=== PATIENT | male | born 1975 | race Caucasian/White ===

== ENCOUNTER 2022-02-15 20:18 | Observation (INO) ==
[2022-02-15] MEDS ORDERED: NITROGLYCERIN SL 0.4 MG/TAB TAB SL STA (20:37)
--- NOTE | 2022-02-15 20:40 | Emergency Department Note ---
History of Present Illness General Chief complaint: Chest Pain Stated complaint: TIGHTNESS IN CHEST, NUMBNESS IN JAW, HYPERTENSIVE Time Seen by Provider: 02/15/22 20:25 Source: patient and family ( who is at the bedside) Mode of arrival: ambulatory Limitations: no limitations History of Present Illness Maximum Pain Intensity: 3 This patient is a 47-year-old male who comes in after having chest pain since Wednesday. He describes an off-and-on chest tightness up to 3 out of 10 he says some numbness and tingling in his jaw. It has been intermittent but lasting up to hours he thinks he feels better at rest but is not necessarily better with exertion he gets worse if he plays a video game that stressful. Denies shortness of breath or pleurisy no trauma or injury. No diaphoresis. No nausea vomiting. No blood or melena stool. He did take 4 baby aspirin's at home. He had a stress test about a year ago as he had similar type symptoms. Moving his mother recently due to health problems and is so that is been somewhat stressful. No significant belching Home Medications Medication Instructions Recorded Confirmed Type lisinopril 10 1 tab PO HS 08/09/19 02/15/22 History mg-hydrochlorothiazide 12.5 mg tablet multivitamin 1 tab PO QAM 11/27/19 02/15/22 History omeprazole 40 mg capsule,delayed 40 mg PO QAM 02/15/22 02/15/22 History release Allergies Allergy/AdvReac Type Severity Reaction Status Date / Time hydrocodone AdvReac Intermediate Dizziness Verified 02/15/22 20:51 Past Med/Surg History Medical History Degenerative disc disease Hypertension Sciatic leg pain Sleep apnea CPAP HS Spondylisthesis ON CYMBALTA FOR THIS Strain of extensor tendon of wrist Trigger thumb of left hand Surgical History H/O vasectomy History of carpal tunnel surgery of right wrist History of deviated nasal septum WITH REPAIR History of surgery on arm CHILD CANT REM. WHICH ARM Slow to wake up after anesthesia HX- NOT AFTER MOST RECENT SURGERY Family History Mother Diabetes Social History Smoking Status: Never smoker Second Hand Exposure: No; Hx Alcohol Use: No Hx Substance Use: No Preferred Language: Israeli Communication Ability: Effective [employer] Feeder Required: No Beliefs That Will Affect Care: None Current Living Situation: Spouse Feels Safe at Home: Yes Assistive Devices: Contacts Review of Systems A total of 10 systems reviewed and were otherwise negative Physical Exam Vital Signs Vital Signs - 24 hr 02/15/22 20:19 02/15/22 20:44 02/15/22 20:50 Temperature 36.2 C L Temperature Source Temporal Artery Scan Pulse Rate 83 68 Pulse Rate [Right Finger] 77 69 Pulse Rhythm Regular Pulse Rhythm [Right Finger] Regular Regular Pulse Strength [Right Finger] Normal Normal Respiratory Rate 18 18 18 Respiratory Effort / Characteristics Non-Labored Spontaneous Non-Labored Spontaneous Non-Labored Spontaneous Respiratory Depth Normal Normal Normal Respiratory Pattern Regular Blood Pressure 187/103 H Blood Pressure [Right Arm] 166/92 H Blood Pressure Mean 131 Blood Pressure Mean [Right Arm] 116 Blood Pressure Position [Right Arm] Lying Pulse Oximetry 97 98 96 Oxygen Delivery Method Room Air Room Air Room Air Oxygen Flow Rate Sepsis Recent Fever Within 48 Hours No Sepsis New/Unexplained Change in Mental Status No Sepsis Action Taken by Nursing No Action Required 02/15/22 21:06 02/15/22 21:48 02/15/22 22:39 Temperature Temperature Source Pulse Rate Pulse Rate [Right Finger] 76 72 68 Pulse Rhythm Pulse Rhythm [Right Finger] Regular Regular Regular Pulse Strength [Right Finger] Normal Normal Normal Respiratory Rate 18 24 15 Respiratory Effort / Characteristics Non-Labored Spontaneous Non-Labored Spontaneous Non-Labored Spontaneous Respiratory Depth Normal Normal Normal Respiratory Pattern Blood Pressure Blood Pressure [Right Arm] 145/95 H 144/86 H 119/84 Blood Pressure Mean Blood Pressure Mean [Right Arm] 111 105 95 Blood Pressure Position [Right Arm] Lying Lying Lying Pulse Oximetry 96 97 97 Oxygen Delivery Method Room Air Room Air Room Air Oxygen Flow Rate Sepsis Recent Fever Within 48 Hours Sepsis New/Unexplained Change in Mental Status Sepsis Action Taken by Nursing 02/15/22 23:12 02/16/22 00:00 Temperature Temperature Source Pulse Rate Pulse Rate [Right Finger] 67 Pulse Rhythm Pulse Rhythm [Right Finger] Regular Pulse Strength [Right Finger] Normal Respiratory Rate 16 Respiratory Effort / Characteristics Non-Labored Spontaneous Respiratory Depth Normal Respiratory Pattern Blood Pressure Blood Pressure [Right Arm] 122/75 Blood Pressure Mean Blood Pressure Mean [Right Arm] 90 Blood Pressure Position [Right Arm] Semi-fowlers Pulse Oximetry 96 96 Oxygen Delivery Method Room Air Oxygen Flow Rate 0 Sepsis Recent Fever Within 48 Hours Sepsis New/Unexplained Change in Mental Status Sepsis Action Taken by Nursing General: Well developed well nourished middle-age male who appears in no acute distress, breathing comfortably on room air. Normal speech HEENT: Normal cephalic atraumatic. Pupils are equal round and reactive to light. Extraocular movements are intact. Oropharynx is pink with moist mucous membranes. No swelling of the mouth lips or tongue. Neck: Supple with a midline trachea. No meningeal signs or stiffness, no JVD or bruits. No Stridor. Chest: Clear to auscultation bilaterally. No wheezes or rhonchi. No increased work of breathing. Not reproducibly tender Heart: Regular rate and rhythm without murmurs or gallops. Abdomen: Soft nontender, nondistended without rebound guarding or rigidity. Extremities: No cyanosis clubbing or edema. No calf tenderness or assymetry Spine/Back. Non tender to palpation. No CVA tenderness Skin: Good turgor without rashes. Neurologic exam: Cranial nerves two through 12 are intact. Motor and sensation are intact and symmetrical throughout. Course Administered Medications Discontinued Medications Al Hydrox/Mg Hydrox/Simethicone (Gi Cocktail Ed Use) 1 dose PO ONE ONE Stop: 02/15/22 21:36 Last Admin: 02/15/22 21:47 Dose: 1 dose Documented by: [id number] Nitroglycerin (Nitroglycerin Sl 0.4 Mg/Tab Tab) 0.4 mg SL NOW STA Stop: 02/15/22 20:38 Last Admin: 02/15/22 21:06 Dose: 0.4 mg Documented by: [id number] Medical Decision Making Differential Diagnosis Acute coronary syndrome, arrhythmia, PE, pneumothorax, aortic pathology, GERD, musculoskeletal, anxiety Medical Records Attestation: I reviewed the patient's medical records. Home Medications Current Medication List: was personally reviewed by me Laboratory Data Attestation: I reviewed the patient's lab results. Result diagrams: 02/15/22 20:32 02/15/22 20:32 Lab Results 04/03/22 04/03/22 04/03/22 Range/Units 20:32 20:32 20:32 WBC 9.27 (4.8-10.8) K/uL RBC 5.22 (4.7-6.1) M/uL Hgb 15.2 (14.0-18.0) g/dL Hct 44.9 (42-52) % MCV 86.0 (80-100) fL MCH 29.1 (25-34) pg MCHC 33.9 (32-36) g/dL RDW Std Deviation 44.0 (36.4-46.3) fL RDW Coeff of Jeffrey 14.0 (11.5-14.5) % Plt Count 300 (130-400) K/uL MPV 9.6 (7.4-10.4) fL Immature Gran % (Auto) 0.2 % Neut % (Auto) 61.5 % Lymph % (Auto) 26.5 % Banner % (Auto) 10.1 % Eos % (Auto) 1.4 % Baso % (Auto) 0.3 % Neut # (Auto) 5.69 (1.4-6.5) K/uL Lymph # (Auto) 2.46 (1.2-3.4) K/uL Banner # (Auto) 0.94 H (0.11-0.59) K/uL Eos # (Auto) 0.13 (0-0.5) K/uL Baso # (Auto) 0.03 (0-0.2) K/uL Immature Gran # (Auto) 0.02 (0.00-0.02) K/uL PT 10.8 (9.0-12.0) Seconds INR 1.0 (0.9-1.1) APTT 29.3 (21.0-31.0) Seconds PTT Ratio 1.1 D-Dimer 260 (0-500) ug/L FEU Sodium 139 (136-145) mmol/L Potassium 3.6 (3.5-5.1) mmol/L Chloride 102 (98-107) mmol/L Carbon Dioxide 26 (21-32) mmol/L Anion Gap 11 (3-11) BUN 16 (6-23) mg/dl Creatinine 1.05 (0.6-1.4) mg/dl Est Cr Clr Drug Dosing 93.7 ml/min Est GFR ( Amer) 97.5 ml/min Est GFR (Non-Af Amer) 84.1 ml/min BUN/Creatinine Ratio 15.2 (10-20) Glucose 114 H (70-99(Fasting)) mg/dl Calcium 9.9 (8.5-10.1) mg/dl Total Bilirubin 0.4 (0.2-1.0) mg/dl AST 26 (13-39) U/L ALT 35 (7-52) U/L Alkaline Phosphatase 64 (34-104) U/L Troponin I < 0.03 (0-0.04) ng/ml Total Protein 7.8 (6.0-8.3) gm/dl Albumin 4.7 (3.4-5.0) gm/dl Globulin 3.1 (2.5-4.0) gm/dl Albumin/Globulin Ratio 1.5 (0.9-2) Lipase 41 (11-82) U/L SARS-CoV-2, RNA, NAAT (NEGATIVE) 02/15/22 Range/Units 22:58 WBC (4.8-10.8) K/uL RBC (4.7-6.1) M/uL Hgb (14.0-18.0) g/dL Hct (42-52) % MCV (80-100) fL MCH (25-34) pg MCHC (32-36) g/dL RDW Std Deviation (36.4-46.3) fL RDW Coeff of Jeffrey (11.5-14.5) % Plt Count (130-400) K/uL MPV (7.4-10.4) fL Immature Gran % (Auto) % Neut % (Auto) % Lymph % (Auto) % Banner % (Auto) % Eos % (Auto) % Baso % (Auto) % Neut # (Auto) (1.4-6.5) K/uL Lymph # (Auto) (1.2-3.4) K/uL Banner # (Auto) (0.11-0.59) K/uL Eos # (Auto) (0-0.5) K/uL Baso # (Auto) (0-0.2) K/uL Immature Gran # (Auto) (0.00-0.02) K/uL PT (9.0-12.0) Seconds INR (0.9-1.1) APTT (21.0-31.0) Seconds PTT Ratio D-Dimer (0-500) ug/L FEU Sodium (136-145) mmol/L Potassium (3.5-5.1) mmol/L Chloride (98-107) mmol/L Carbon Dioxide (21-32) mmol/L Anion Gap (3-11) BUN (6-23) mg/dl Creatinine (0.6-1.4) mg/dl Est Cr Clr Drug Dosing ml/min Est GFR ( Amer) ml/min Est GFR (Non-Af Amer) ml/min BUN/Creatinine Ratio (10-20) Glucose (70-99(Fasting)) mg/dl Calcium (8.5-10.1) mg/dl Total Bilirubin (0.2-1.0) mg/dl AST (13-39) U/L ALT (7-52) U/L Alkaline Phosphatase (34-104) U/L Troponin I (0-0.04) ng/ml Total Protein (6.0-8.3) gm/dl Albumin (3.4-5.0) gm/dl Globulin (2.5-4.0) gm/dl Albumin/Globulin Ratio (0.9-2) Lipase (11-82) U/L SARS-CoV-2, RNA, NAAT NEGATIVE (NEGATIVE) Imaging Data Attestation: I personally reviewed and interpreted this imaging study as follows: My Impression: Chest x-rayno acute infiltrate, failure, pneumothorax seen ECG Data Attestation: I personally reviewed and interpreted this ECG as follows: Indication: + chest pain Rate (beats per minute): 85 Rhythm: + normal sinus ECG Intervals/blocks: + Normal QRS, + Normal QT and + Normal DC ECG [place]: + Normal ECG ST segments: + Normal ST segments ECG Findings: no PACs or no PVCs Comparison ECG Date: from (11/18/20) Change: no significant change Additional Comments: EKG #2: Normal sinus rhythm rate of 65. No acute ischemic changes or ectopy. No change when compared EKG #1 MDM Narrative This patient comes in as described above. He was placed on a customs guard in room C 11. He has been having intermittent chest pain lasting hours he looks well and stable vitals he is on the hypertensive side. His initial EKG does not show any ischemic changes or ectopy and no change compared to old. IV access was established and a full cardiac type work-up was obtained including EKG, chest x-ray, cardiac biomarkers and D-dimer. EKG does not show any ischemic changes or ectopy. I did a second EKG while he was here is no change compared EKG #1. His troponin was negative. D-dimer was also negative and a low pretest probability study makes PE highly unlikely. Chest x-ray did not show any congestive heart failure pneumonia or pneumothorax. He has no acute electrolyte or metabolic abnormalities. I did give him nitro x1 and it is unclear whether this helped or not his pain was more in epigastric area I did give him a GI cocktail and this may have helped as well. He does have some risk factors and I do think would benefit from cardiac rule out. I have consulted Dr. Olivas to see him in ER for these measures. Continuous customs guard: An order was placed in the EMR for continuous customs guard. Upon my interpretation the patient was noted to be sinus rhythm with a rate of 68 Impression & Plan Chest pain, Jaw pain, Lab test negative for COVID-19 virus, Hypertension Discharge Plan Visit Data Chief Complaint: Chest Pain Stated Complaint: TIGHTNESS IN CHEST, NUMBNESS IN JAW, HYPERTENSIVE ED Provider: Chip Bull Discharge Problem: Chest pain, Jaw pain, Lab test negative for COVID-19 virus, Hypertension Forms Stand Alone Forms: My [facility] Prescriptions Prescriptions: No Action lisinopril-hydrochlorothiazide 10-12.5 mg Tablet 1 tab PO HS RF: 0 multivitamin Tablet 1 tab PO QAM RF: 0 omeprazole 40 mg capsule,delayed release(DR/EC) 40 mg PO QAM RF: 0 Referrals Referrals: Aurelio Fried MD [Primary Care Provider] - Discharge Problem: Chest pain Qualifiers: Chest pain type: precordial pain Qualified Code(s): R07.2 - Precordial pain Hypertension Qualifiers: Hypertension type: unspecified Qualified Code(s): I10 - Essential (primary) hypertension
[2022-02-15 21:01] LABS: Basophils # (auto) 0.03 K/uL (0-0.2); Basophils % (auto) 0.3 %; Eosinophils # (auto) 0.13 K/uL (0-0.5); Eosinophils % (auto) 1.4 %; Hematocrit (blood only) 44.9 % (42-52); Hemoglobin 15.2 g/dL (14.0-18.0); Immature Granulocytes # (auto) 0.02 K/uL (0.00-0.02); Immature Granulocytes % (auto) 0.2 %; Lymphocytes # (auto) 2.46 K/uL (1.2-3.4); Lymphocytes % (auto) 26.5 %; Mean Corpuscular Hemoglobin 29.1 pg (25-34); Mean Corpuscular Hgb Conc 33.9 g/dL (32-36); Mean Platelet Volume 9.6 fL (7.4-10.4); Monocytes # (auto) 0.94 K/uL (0.11-0.59); Monocytes % (auto) 10.1 %; Neutrophils # (auto) 5.69 K/uL (1.4-6.5); Neutrophils % (auto) 61.5 %; Platelet Count 300 K/uL (130-400); Red Blood Count 5.22 M/uL (4.7-6.1); White Blood Count 9.27 K/uL (4.8-10.8)
[2022-02-15 21:13] LABS: D Dimer 260 ug/L FEU (0-500); Partial Thromboplastin Ratio 1.1; Partial Thromboplastin Time 29.3 Seconds (21.0-31.0); Prothrombin Time 10.8 Seconds (9.0-12.0)
[2022-02-15 21:26] LABS: Troponin I < 0.03 ng/ml (0-0.04)
[2022-02-15 21:33] LABS: Alanine Aminotransferase 35 U/L (7-52); Albumin Globulin Ratio 1.5 (0.9-2); Albumin Level 4.7 gm/dl (3.4-5.0); Alkaline Phosphatase 64 U/L (34-104); Anion Gap 11 (3-11); Aspartate Aminotransferase 26 U/L (13-39); BUN Creatinine Ratio 15.2 (10-20); Bilirubin,Total 0.4 mg/dl (0.2-1.0); Blood Urea Nitrogen 16 mg/dl (6-23); Calcium 9.9 mg/dl (8.5-10.1); Carbon Dioxide 26 mmol/L (21-32); Chloride 102 mmol/L (98-107); Creatinine Clr Calc Pharmacy 93.7 ml/min; Est GFR (African American) 97.5 ml/min; Est GFR (Non-African American) 84.1 ml/min; Globulin 3.1 gm/dl (2.5-4.0); Glucose 114 mg/dl (70-99(Fasting)); Lipase 41 U/L (11-82); Potassium 3.6 mmol/L (3.5-5.1); Sodium 139 mmol/L (136-145); Total Protein 7.8 gm/dl (6.0-8.3)
[2022-02-15] MEDS ORDERED: GI COCKTAIL ED USE PO ONE (21:35)
[2022-02-16] MEDS ORDERED: NITROGLYCERIN SL 0.4 MG/TAB TAB SL PRN (01:22)
[2022-02-16] MEDS ORDERED: POLYETHYLENE (MIRALAX) 17 GM PACK PO PRN (01:22)
[2022-02-16] MEDS ORDERED: ONDANSETRON INJ 2 MG/ML 2 ML VIAL IV PRN (01:22)
--- NOTE | 2022-02-16 01:42 | History and Physical Report ---
CHIEF COMPLAINT: Chest pain. HISTORY OF PRESENT ILLNESS: This is a 47-year-old male with past medical history significant for hyperlipidemia, allergic rhinitis, hypertension, morbid obesity, lumbar disk disease, history of tension headaches, history of hypersomnolence disorder, presents with chest pain. The patient says he was playing with play box around 6:30 p.m., he noticed left chest tightness, about 4/10 in severity, and also some numbness in the left jaw and came to the ER. Nitroglycerin seemed to help, but seems somewhat coming back. He has also ongoing epigastric pain and is taking omeprazole, which is not helping. He was given some GI cocktail in the ER, but that did not help. The patient also says that he is having chest discomfort on and off since the last few days. Currently, resting comfortably and hemodynamically stable. Denies any headache. No dizziness, no blurred visions, no double visions, no earache, no runny nose, no sore throat, no cough, no difficulty swallowing. Appetite is okay. No shortness of breath, no nausea, no sweating, no abdominal pain. Normal bowel and bladder movements. Denies blood in stools or black stools, no hematuria, no swelling in the legs. Otherwise, he walks and climbs steps okay. ALLERGIES: HYDROCODONE. PAST MEDICAL HISTORY: As mentioned above. PAST SURGICAL HISTORY: Carpal tunnel surgery, repair of nasal septum, vasectomy. MEDICATIONS: The patient is on lisinopril/hydrochlorothiazide 10/12.5 mg p.o. daily, omeprazole 40 mg p.o. daily, multivitamin 1 tablet p.o. daily. FAMILY HISTORY: Significant for mother has leukemia, hypertension. Father has schizophrenia. Mother has diabetes. Paternal grandmother had breast cancer. Paternal grandfather had prostate cancer. Aunt has breast cancer. SOCIAL HISTORY: . No smoking. Alcohol, 1 glass of wine a week. No drug use. REVIEW OF SYMPTOMS: As per HPI. Rest of review of symptoms is negative. PHYSICAL EXAMINATION: GENERAL: The patient is morbidly obese, not in acute distress. VITAL SIGNS: Temperature 36.2, pulse 68, respiratory rate 15, blood pressure 119/84, oxygen 96% on room air. HEENT: Pupils equal, round and reactive to light. Oral mucosa moist. NECK: No JVD or neck masses. CARDIOVASCULAR: S1 and S2 heard. Regular rate and rhythm. No murmur, no gallop. RESPIRATORY SYSTEM: Normal AP diameter. No accessory muscle use. No wheezing, no crackles. ABDOMEN: Soft, bowel sounds present, nontender, no distention. CENTRAL NERVOUS SYSTEM: Cranial nerves II-XII grossly intact, nonfocal. EXTREMITIES: No edema, no erythema. LABORATORY DATA: WBC 9.2, hemoglobin 15.2, hematocrit 44.9, platelets 300. PT 10.8, INR 1, APTT 29.3. D-dimer 260. Sodium 139, potassium 3.6, chloride 102, bicarbonate 26, BUN 16, creatinine 1.05, serum glucose 114, calcium 9.9. Total bilirubin 0.4, AST 26, ALT 35, alkaline phosphatase 64. Troponin I less than 0.03, lipase 41. SARS-CoV-2 rapid test negative. IMAGING DATA: Chest x-ray, no acute findings. EKG: Normal sinus rhythm at a rate of 65, no significant change was found. ASSESSMENT AND PLAN: This 47-year-old male presents with chest pain. 1. Chest pain: Rule out acute coronary syndrome. Initial workup is negative. Will follow serial enzymes, n.p.o. Consult cardiology in the a.m. for further recommendations. 2. History of hypertension: Continue his home medications, he says his blood pressure is running somewhat high at home today, we will monitor the blood pressure. 3. Gastroesophageal reflux disease: Continue omeprazole. 4. History of hyperlipidemia, not on any medication. Follow fasting lipid profile. 5. Morbid obesity: Needs counseling. 6. Deep venous thrombosis prophylaxis: Sequential compression devices. DIS[facility] PT/OT prior to discharge. Social service to help with discharge planning. Level 1 full code. Job ID: [id number] MTDD
[2022-02-16 05:59] LABS: Basophils # (auto) 0.02 K/uL (0-0.2); Basophils % (auto) 0.2 %; Eosinophils # (auto) 0.17 K/uL (0-0.5); Eosinophils % (auto) 1.8 %; Hematocrit (blood only) 42.3 % (42-52); Hemoglobin 14.5 g/dL (14.0-18.0); Immature Granulocytes # (auto) 0.01 K/uL (0.00-0.02); Immature Granulocytes % (auto) 0.1 %; Lymphocytes # (auto) 3.75 K/uL (1.2-3.4); Lymphocytes % (auto) 39.6 %; Mean Corpuscular Hemoglobin 29.4 pg (25-34); Mean Corpuscular Hgb Conc 34.3 g/dL (32-36); Mean Corpuscular Volume 85.8 fL (80-100); Mean Platelet Volume 9.5 fL (7.4-10.4); Monocytes # (auto) 0.87 K/uL (0.11-0.59); Monocytes % (auto) 9.2 %; Neutrophils # (auto) 4.64 K/uL (1.4-6.5); Neutrophils % (auto) 49.1 %; Platelet Count 279 K/uL (130-400); RDW Coefficient of Variation 14.1 % (11.5-14.5); RDW Standard Deviation 43.9 fL (36.4-46.3); Red Blood Count 4.93 M/uL (4.7-6.1); White Blood Count 9.46 K/uL (4.8-10.8)
[2022-02-16 06:22] LABS: Anion Gap 10 (3-11); BUN Creatinine Ratio 15.6 (10-20); Blood Urea Nitrogen 15 mg/dl (6-23); Calcium 9.4 mg/dl (8.5-10.1); Carbon Dioxide 28 mmol/L (21-32); Chloride 101 mmol/L (98-107); Chol HDL Ratio 4.3 (0-5); Cholesterol 187 mg/dl (0-200); Creatinine Clr Calc Pharmacy 102.9 ml/min; Est GFR (African American) 108.7 ml/min; Est GFR (Non-African American) 93.8 ml/min; Glucose 97 mg/dl (70-99(Fasting)); HDL Cholesterol 44 mg/dl; LDL Cholesterol Calculated 107 mg/dl; Magnesium 2.1 mg/dl (1.7-2.4); Potassium 3.8 mmol/L (3.5-5.1); Sodium 139 mmol/L (136-145); Triglycerides 179 mg/dl (0-150); VLDL Cholesterol 36 mg/dl (0-30)
[2022-02-16 06:23] LABS: Troponin I < 0.03 ng/ml (0-0.04)
--- NOTE | 2022-02-16 08:04 | XRay Report ---
XR chest 1V portable HISTORY: Atypical Chest Pain COMPARISON: Chest 11/18/2020. FINDINGS: There are low lung volumes. The cardiac silhouette remains mildly enlarged. This remains un changed and may be accentuated by the low lung volumes.. The lungs are clear. No pleural effusions. N o pneumothorax. No evidence for pulmonary edema. IMPRESSION: No significant change compared to the prior study. No acute process. ACT 112: Negative or not required by law. Electronically signed by: Paul Arnold M.D. 02/16/2022 8:02 AM
[2022-02-16] MEDS: MULTIVITAMIN TAB PO SCH (08:51)
[2022-02-16] MEDS: PANTOprazole 40 MG TAB PO SCH (08:51)
--- NOTE | 2022-02-16 09:25 | Cardiology Consultation ---
Date of Consultation February 16, 2022 Assessment & Plan (1) Chest pain: (2) Hypertension: Pt presents with typical angina Initial workup for ACS was unremarkable stress echo was positive for inferior ischemia along with hypertensive BP response chest discomfort somewhat increased at peak heart rate, no abdominal pain given these findings, will proceed with cardiac cath the procedure along with the risks, benefits and alternatives were discussed with the patient he is in agreement with the plan and wishes to proceed given uncontrolled HTN, and abdominal pain will also obtain abdominal ultrasound, no bruit on exam will also place nitro patch for bp control and prevent and possible ischemic pain History of Present Illness Reason for Consultation: Chest pain Requesting Physician: Dr. Hopkins Attending Physician: Alan Hopkins MD History of Present Illness Mr. Ramsey is a very pleasant 47-year-old gentleman who presented to [facility] on 02/15/2022 with complaints of chest discomfort. Patient states he first noticed the chest discomfort 2 days prior to presentation. He describes it as a pressure sensation in the center of his chest that radiates across his left precordium and up into his left jaw. He notes that initially started with exertion but then on the evening of the third occurred at rest as well. He notes that he was playing competitive videogame on [employer] while the chest discomfort occurred. He denied any associated symptoms with it other than radiation of the discomfort. He and his became concerned he was brought in the emergency department. Upon arrival initial work-up was unremarkable he is admitted to telemetry. He states that the chest discomfort did resolve with nitro in the ER but he had some slight recurrence this morning as well. Allergies Allergy/AdvReac Type Severity Reaction Status Date / Time hydrocodone AdvReac Intermediate Dizziness Verified 02/15/22 20:51 Home Medications Medication Instructions Recorded Confirmed Type lisinopril 10 1 tab PO HS 08/09/19 02/15/22 History mg-hydrochlorothiazide 12.5 mg tablet multivitamin 1 tab PO QAM 11/27/19 02/15/22 History omeprazole 40 mg capsule,delayed 40 mg PO QAM 02/15/22 02/15/22 History release Patient History Medical History (Updated 02/16/22 @ 09:23 by Cortez Sanchez DO) Degenerative disc disease Hypertension Sciatic leg pain Sleep apnea CPAP HS Spondylisthesis ON CYMBALTA FOR THIS Strain of extensor tendon of wrist Trigger thumb of left hand Surgical History H/O vasectomy History of carpal tunnel surgery of right wrist History of deviated nasal septum WITH REPAIR History of surgery on arm CHILD CANT REM. WHICH ARM Slow to wake up after anesthesia HX- NOT AFTER MOST RECENT SURGERY Family History Mother Diabetes Social History Smoking Status: Never smoker Second Hand Exposure: No; Hx Alcohol Use: Yes Alcohol type: wine Hx Substance Use: No Preferred Language: Japanese Communication Ability: Effective Consulting Senior Practice Director Required: Voice Beliefs That Will Affect Care: None Current Living Situation: Spouse Feels Safe at Home: Yes Safety Concerns: Feels Safe At This Time Assistive Devices: None Review of Systems Review of Systems: All systems reviewed & are unremarkable except as noted in HPI & below Physical Exam Physical Exam: General: Awake, alert and oriented x 3. No acute distress. HEENT: Normocephalic, atraumatic. Pupils equal, round and reactive to light and accommodation. Extraocular muscles are intact. Anicteric sclera. Moist mucous membranes. Neck: No JVD. No bruit. Cardiovascular: Regular. Positive S-4. Normal S-1 and S-2. No S-3. 3/6 mid to late systolic ejection murmur, greatest at the right sternal border, second intercostal space with radiation to the bilateral carotids. No rubs. Pulmonary: Clear to auscultation bilaterally. No rales, rhonchi, or wheezing. Abdomen: Bowel sounds x 4, soft. No rebound, guarding or tenderness. No organomegaly. Extremities: No clubbing, cyanosis or edema. +2 pedal pulses bilaterally. Skin: Warm and dry. Results & Data ([facility]) Vital Signs (Past 12 Hours) Vital Signs Temp Pulse Pulse Pulse Resp BP BP 02/16/22 07:30 36.7 C 58 L 17 02/16/22 06:20 57 L 02/16/22 02:09 36.8 C 74 20 141/88 H 02/16/22 01:22 36.8 C 74 20 141/88 H 02/16/22 01:20 64 02/16/22 01:17 67 16 122/75 02/16/22 00:00 67 16 02/15/22 23:12 02/15/22 22:39 68 15 02/15/22 21:48 72 24 BP Pulse Ox Pulse Ox 02/16/22 07:30 120/76 96 02/16/22 06:20 02/16/22 02:09 96 02/16/22 01:22 96 96 02/16/22 01:20 02/16/22 01:17 96 02/16/22 00:00 122/75 96 02/15/22 23:12 96 02/15/22 22:39 119/84 97 02/15/22 21:48 144/86 H 97 (1) Chest pain Chest pain type: precordial pain Qualified Code(s): R07.2 - Precordial pain (2) Hypertension Hypertension type: unspecified Qualified Code(s): I10 - Essential (primary) hypertension
[2022-02-16] MEDS: NITROGLYCERIN 2% OINTMENT 30GM TUBE EXT SCH ×3 (10:32→21:11)
--- NOTE | 2022-02-16 10:45 | Medical Student Consultation ---
Date of Consultation February 16, 2022 Assessment & Plan 1) Chest pain * Stress test done with signs of ischemic change in inferior and lateral lead. * Chest pain improved on nitroglycerin administration on admission but is present again this morning. Nitroglycerin patch will be administered for chest discomfort from possible ischemia and to lower BP. * Catheterization recommended at this time due to possible ischemic changes seen on stress test and patient's symptoms of chest pain at rest. Patient is aware or risks and benefits of the procedure, and is agreeable to proceed with the cath 2) Hypertension * BP on admission was 187/103 managed with 0.4mg nitroglycerin * This morning, BP is 142/86. Nitroglycerin patch prescribed * At home, patient is managed on lisinopril 10/hctz 12.5. States that his usual home blood pressure is around 120-130 systolic. No past diagnosis of hyperlipidemia or diabetes. History of Present Illness Reason for Consultation: chest pain Attending Physician: Alan Hopkins MD History of Present Illness Mr. Ramsey is a 47 year old male with past medical history of hypertension and O SA presenting to the ED with chest tightness and jaw numbness and tingling since Wednesday. He had onset of left sided chest tightness and jaw numbness at rest while playing video games and took his blood pressure which was 180/97 during this episode. He had no shortness of breath, diaphoresis, or nausea. He has also had dull epigastric pain for the last 3 months treated unsuccessfully with protonix. Patient states that this epigastric pain was worked up outpatient with an echo that was normal. In November of 2020 he had a similar episode of chest tightness where he presented to the ED, had a negative workup for STEMI, aortic dissection, and fractures and followed up outpatient for a stress test that he states was negative. Allergies Allergy/AdvReac Type Severity Reaction Status Date / Time hydrocodone AdvReac Intermediate Dizziness Verified 02/15/22 20:51 Home Medications Medication Instructions Recorded Confirmed Type lisinopril 10 1 tab PO HS 08/09/19 02/15/22 History mg-hydrochlorothiazide 12.5 mg tablet multivitamin 1 tab PO QAM 11/27/19 02/15/22 History omeprazole 40 mg capsule,delayed 40 mg PO QAM 02/15/22 02/15/22 History release Patient History Medical History (Updated 02/16/22 @ 09:23 by Cortez Sanchez DO) Degenerative disc disease Hypertension Sciatic leg pain Sleep apnea CPAP HS Spondylisthesis ON CYMBALTA FOR THIS Strain of extensor tendon of wrist Trigger thumb of left hand Surgical History H/O vasectomy History of carpal tunnel surgery of right wrist History of deviated nasal septum WITH REPAIR History of surgery on arm CHILD CANT REM. WHICH ARM Slow to wake up after anesthesia HX- NOT AFTER MOST RECENT SURGERY Family History (Updated 02/16/22 @ 11:34 by Melita Franks) Mother Diabetes Coronary heart disease Social History Smoking Status: Never smoker Second Hand Exposure: No; Hx Alcohol Use: Yes Alcohol type: wine Hx Substance Use: No Preferred Language: Albanian Communication Ability: Effective Consulting Engineer Required: Voice Beliefs That Will Affect Care: None Current Living Situation: Spouse Feels Safe at Home: Yes Safety Concerns: Feels Safe At This Time Assistive Devices: None Review of Systems Constitutional: no diaphoresis Ear, Nose, Mouth, Throat: numbness and tingling on left side of jaw Respiratory: no SOB, no cough Cardiovascular: Additional Comments: dull pressure sensation on the left side of his chest, no palpitations Gastrointestinal: no nausea or vomiting Neurologic: no lightheadedness, no syncope Physical Exam Constitutional: obese male in no apparent distress, comfortable Respiratory: normal respiratory effort, no crackles, rales or ronchi on auscultation Cardiovascular: RRR , no carotic or abdominal bruits heard, strong posterior tibial pulses bilaterally, no edema in lower extremities Chest (Breasts): Additional Comments: no tenderness on palpation of the chest Gastrointestinal (Abdomen): active bowel sounds, abdomen soft, no tenderness or masses on palpation Skin: warm and dry Neurologic: alert and oriented x3 Results & Data ([facility]) Vital Signs (Past 12 Hours) Vital Signs Temp Pulse Pulse Pulse Resp BP BP 02/16/22 07:30 36.7 C 58 L 17 02/16/22 06:20 57 L 02/16/22 02:09 36.8 C 74 20 141/88 H 02/16/22 01:22 36.8 C 74 20 141/88 H 02/16/22 01:20 64 02/16/22 01:17 67 16 122/75 02/16/22 00:00 67 16 02/15/22 23:12 BP Pulse Ox Pulse Ox 02/16/22 07:30 120/76 96 02/16/22 06:20 02/16/22 02:09 96 02/16/22 01:22 96 96 02/16/22 01:20 02/16/22 01:17 96 02/16/22 00:00 122/75 96 02/15/22 23:12 96 Laboratory Results Troponin <0.03 on admission and on repeat today Diagnostic Findings Stress test: Ischemic changes seen in inferior and lateral leads, no arrhythmias, HTN blood pressure response, chest pain worsened on maximal exertion Resting Echo: EF 55-60%, normal left systolic function no significant valvular disease noted, no wall motion abnormalities
--- NOTE | 2022-02-16 11:33 | Pre Anesthesia Assessment ---
Date of Service February 16, 2022 Pre Sedation Assessment Vital Signs Temp Pulse Pulse Pulse Resp BP BP 02/16/22 10:45 36.6 C 86 16 142/86 H 02/16/22 07:30 36.7 C 58 L 17 02/16/22 06:20 57 L 02/16/22 02:09 36.8 C 74 20 141/88 H 02/16/22 01:22 36.8 C 74 20 141/88 H 02/16/22 01:20 64 02/16/22 01:17 67 16 122/75 02/16/22 00:00 67 16 02/15/22 23:12 02/15/22 22:39 68 15 02/15/22 21:48 72 24 02/15/22 21:06 76 18 02/15/22 20:50 68 69 18 02/15/22 20:44 77 18 02/15/22 20:19 36.2 C L 83 18 187/103 H BP Pulse Ox Pulse Ox 02/16/22 10:45 97 02/16/22 07:30 120/76 96 02/16/22 06:20 02/16/22 02:09 96 02/16/22 01:22 96 96 02/16/22 01:20 02/16/22 01:17 96 02/16/22 00:00 122/75 96 02/15/22 23:12 96 02/15/22 22:39 119/84 97 02/15/22 21:48 144/86 H 97 02/15/22 21:06 145/95 H 96 02/15/22 20:50 166/92 H 96 02/15/22 20:44 98 02/15/22 20:19 97 Cardiovascular + regular rate and + regular rhythm + S1 normal and + S2 normal + PMI normal + radial pulses present; no JVD and no femoral bruit Respiratory normal respiratory effort, lungs clear to auscultation Pre-Sedation Airway Assessment Smoking Status: Never smoker Mallampati Class: III ASA: ASA3 NPO Status Date of Last Intake of Fluids: 02/16/22 Time of Last Intake of Fluids: 08:00 Last Oral Intake of Fluids Comment: Meds with sips Date of Last Intake of Solid Food: 02/15/22 Procedure Planning Contraindications for Sedation: none Current Medications Reviewed: Yes Notes The planned sedation has been discussed with the patient. Informed Consent was obtained. I have identified the patient, determined the appropriateness of sedation and have assessed the patient immediately prior to the procedure. All medicine(s) and interventions are by my order.
[2022-02-16] MEDS ORDERED: SODIUM CHLORIDE 0.9% 1000ML 1,000 ML IV SCH (11:45)
[2022-02-16] MEDS: ACETAMINOPHEN 325 MG TAB PO PRN ×2 (13:50→18:01)
[2022-02-16] MEDS ORDERED: niCARdipine HCL INJ 2.5 MG/ML 10 ML AMP ONE (14:55)
[2022-02-16] MEDS ORDERED: HEPARIN (PORCINE) 1000 UNIT/ML 10 ML (CATH LAB USE ONLY) ONE (14:55)
[2022-02-16] MEDS ORDERED: fentaNYL citrate 100 MCG/2 ML VIAL ONE (14:56)
[2022-02-16] MEDS ORDERED: MIDAZOLAM HCL 1 MG/ML 2ML VIAL ONE (14:56)
[2022-02-16] MEDS ORDERED: NITROGLYCERIN/D5W 100MCG/ML 20ML SYR ONE (14:56)
--- NOTE | 2022-02-16 15:03 | Ultrasound Report ---
ULTRASOUND OF THE ABDOMINAL AORTA CLINICAL HISTORY: Hypertension. Generalized abdominal pain. Aneurysm screening. COMPARISON STUDY: No priors TECHNIQUE: Multiple childers scale, color Doppler, and spectral Doppler sonograms of the abdominal aorta and iliac arteries are performed. Images are reviewed in the transverse and longitudinal planes. FINDINGS: There is mild atherosclerotic calcification and irregularity noted throughout the abdominal aorta. Th e proximal abdominal aorta measures 2.4 x 2.9 cm (AP times transverse), the mid abdominal aorta measu res 2.3 x 2.3 cm, and the distal abdominal aorta measures 2.0 x 1.8 cm. The right common iliac artery measures up to 1.4 cm and the left common iliac artery measures up to 1.4 cm. Survey images of the l iver show evidence of hepatic steatosis. IMPRESSION: There is no sonographic evidence of abdominal aortic aneurysm. ACT 112: Negative or not required by law. Electronically signed by: Bora Casas M.D. 02/16/2022 3:02 PM
--- NOTE | 2022-02-16 15:16 | Hospitalist Progress Note ---
Date of Service February 16, 2022 Assessment & Plan (1) Chest pain: (2) Abnormal stress test: Plan: 47-year-old male presented to ED yesterday with chest pain Chest pain-serial troponin negative. EKG without ischemic changes. Seen by cardiology. Stress test was abnormal and underwent cardiac cath which showed normal coronaries. Per cardiology, abnormal stress findings due to uncontrolled hypertension and recommended increasing lisinopril hydrochlorothiazide dose and follow-up with PCP in a week with BMP. No cardiac follow-up necessary. Essential hypertension-increase dose of Prinzide GERD-continue PPI Hyperlipidemia-continue statin Morbid obesity -BMI 41. Weight loss recommended. Admission and Anticipated Discharge Date Admission Date: February 15, 2022 Subjective Patient was seen and examined at bedside. Came back from cath. He wants to go home, even if it is late. States he is relieved that his cardiac cath is clean. States his blood pressure is usually good when he goes to his PCP visit but goes up with stress. He is helping his mom move to assisted living facility in [place] and is currently stressful dealing with selling the property, also to drive to [place] for that. Physical Exam Physical Exam: General: Lying comfortably in bed, not in distress, on room air HEENT: EOMI, JESUS, MMM Chest: Clear breath sounds bilaterally, no wheezes or crackles CVS: Regular rate and rhythm, normal heart sounds, no murmur Abdomen: Soft, non tender, not distended, normal bowel sounds Neuro: Awake, alert, oriented, conversing well, non focal. Cardiac cath wrist puncture site noted. Extremities: No cyanosis, clubbing or edema Results & Data Results & Data ([facility]) Vital Signs (Past 12 Hours) Vital Signs Temp Pulse Pulse Resp BP BP Pulse Ox 02/16/22 14:17 75 02/16/22 10:45 36.6 C 86 16 142/86 H 97 02/16/22 07:30 36.7 C 58 L 17 120/76 96 02/16/22 06:20 57 L Laboratory Results Short CBC 02/15/22 02/16/22 Range/Units 20:32 05:25 WBC 9.27 9.46 (4.8-10.8) K/uL Hgb 15.2 14.5 (14.0-18.0) g/dL Hct 44.9 42.3 (42-52) % Plt Count 300 279 (130-400) K/uL BMP 02/15/22 02/16/22 20:32 05:25 Sodium 139 139 Potassium 3.6 3.8 Chloride 102 101 Carbon Dioxide 26 28 BUN 16 15 Creatinine 1.05 0.96 Glucose 114 H 97 Calcium 9.9 9.4 Cardiac Enzymes 02/15/22 02/16/22 02/16/22 Range/Units 20:32 05:25 10:35 Troponin I < 0.03 < 0.03 < 0.03 (0-0.04) ng/ml Liver Function 02/15/22 Range/Units 20:32 Total Bilirubin 0.4 (0.2-1.0) mg/dl AST 26 (13-39) U/L ALT 35 (7-52) U/L Alkaline Phosphatase 64 (34-104) U/L Albumin 4.7 (3.4-5.0) gm/dl Medications Administered Current Inpatient Medications Acetaminophen (Acetaminophen 325 Mg Tab) 650 mg PO Q4H PRN PRN Reason: Pain or Fever Stop: 03/18/22 01:21 Last Admin: 02/16/22 13:50 Dose: 650 mg Documented by: Lisinopril/HCTZ (Lisinopril/Hctz 10/12.5mg Tab) 1 tab PO HS [facility] Stop: 03/18/22 20:59 Sodium Chloride (Nss 1000ml) 1,000 mls @ 105 mls/hr IV .Q9H32M [facility] Stop: 03/18/22 11:44 Last Admin: 02/16/22 12:13 Dose: 105 mls/hr Documented by: Multivitamins (Multivitamin Tab) 1 tab PO QAM [facility] Stop: 03/18/22 08:59 Last Admin: 02/16/22 08:51 Dose: 1 tab Documented by: Nitroglycerin (Nitroglycerin Sl 0.4 Mg/Tab Tab) 0.4 mg SL UD PRN PRN Reason: Chest Pain Stop: 03/18/22 01:21 Nitroglycerin (Nitroglycerin 2% Ointment 30gm Tube) 0.5 inch EXT Q6H [facility] Stop: 03/18/22 10:14 Last Admin: 02/16/22 10:32 Dose: 0.5 inch Documented by: Ondansetron HCl (Ondansetron Inj 2 Mg/Ml 2 Ml Vial) 4 mg IV Q6H PRN PRN Reason: Nausea Stop: 03/18/22 01:21 Pantoprazole Sodium (Pantoprazole 40 Mg Tab) 40 mg PO QAM [facility] Stop: 03/18/22 08:59 Last Admin: 02/16/22 08:51 Dose: 40 mg Documented by: Polyethylene Glycol (Polyethylene (Miralax) 17 Gm Pack) 17 gm PO DAILY PRN PRN Reason: Constipation Stop: 03/18/22 01:21 (1) Chest pain Chest pain type: precordial pain Qualified Code(s): R07.2 - Precordial pain
--- NOTE | 2022-02-16 16:25 | Cardiac Catheterization ---
Cardiac Cath Procedure Brief Procedure Date February 16, 2022 Pre-Procedure Diagnosis Pre-Procedure Diagnosis: Positive Stress Test AUC Score AUC Score: 8 Post-Procedure Diagnosis Post-Procedure Diagnosis: Normal Coronary Arteries and Normal LV Systolic Function Procedure(s) Performed Procedure(s) Performed: Coronary Angiography and LV Angiography Mechanical Maintenance Supervisor Walter Love MD Flame Gouger(s) Angel Martines Estimated Blood Loss Estimated Blood Loss: <15cc Medication(s) Medication(s): Fentanyl (12.5 mcg IV), Heparin (5000 units IV), Lidocaine 1% (Local infiltration access site), Nicardipine (250 mcg intra-arterial after arterial sheath insertion) and Versed (1 mg IV) Preliminary Findings Right dominant coronary anatomy Normal coronary arteries with very large caliber dominant right coronary artery Normal left ventricular systolic function, EF greater than 65% Normal left end-diastolic pressure Recommendations Recommendations: Medical Therapy and/or Counseling Specimens Specimens: None Fluids (cc crystalloids) Fluids (cc crystalloids): 60 Anesthesia Start time: 1551 stop time: 1611 Procedural Complication(s) None Disposition PCU
--- NOTE | 2022-02-16 16:35 | Communication Note ---
Date of Service: February 16, 2022 Normal coronary arteries by cath. Abnormal stress findings likely due to uncontrolled hypertension recommend d/c to home today per protocol increase lisinopril/hctz to 40/25mg daily bmp and f/u with PCP in 1 week to follow no cardiac follow up necessary.
--- NOTE | 2022-02-16 18:44 | Discharge Summary ---
Date of Service February 16, 2022 Admission HPI Per Admitting Provider This is a 47-year-old male with past medical history significant for hyperlipidemia, allergic rhinitis, hypertension, morbid obesity, lumbar disk disease, history of tension headaches, history of hypersomnolence disorder, presents with chest pain. The patient says he was playing with play box around 6:30 p.m., he noticed left chest tightness, about 4/10 in severity, and also some numbness in the left jaw and came to the ER. Nitroglycerin seemed to help, but seems somewhat coming back. He has also ongoing epigastric pain and is taking omeprazole, which is not helping. He was given some GI cocktail in the ER, but that did not help. The patient also says that he is having chest discomfort on and off since the last few days. Currently, resting comfortably and hemodynamically stable. Denies any headache. No dizziness, no blurred visions, no double visions, no earache, no runny nose, no sore throat, no cough, no difficulty swallowing. Appetite is okay. No shortness of breath, no nausea, no sweating, no abdominal pain. Normal bowel and bladder movements. Denies blood in stools or black stools, no hematuria, no swelling in the legs. Otherwise, he walks and climbs steps okay. Admission Exam Per Admitting Provider GENERAL: The patient is morbidly obese, not in acute distress. VITAL SIGNS: Temperature 36.2, pulse 68, respiratory rate 15, blood pressure 119/84, oxygen 96% on room air. HEENT: Pupils equal, round and reactive to light. Oral mucosa moist. NECK: No JVD or neck masses. CARDIOVASCULAR: S1 and S2 heard. Regular rate and rhythm. No murmur, no gallop. RESPIRATORY SYSTEM: Normal AP diameter. No accessory muscle use. No wheezing, no crackles. ABDOMEN: Soft, bowel sounds present, nontender, no distention. CENTRAL NERVOUS SYSTEM: Cranial nerves II-XII grossly intact, nonfocal. EXTREMITIES: No edema, no erythema. Principal Diagnosis Chest pain Discharge Exam General: Lying comfortably in bed, not in distress, on room air HEENT: EOMI, JESUS, MMM Chest: Clear breath sounds bilaterally, no wheezes or crackles CVS: Regular rate and rhythm, normal heart sounds, no murmur Abdomen: Soft, non tender, not distended, normal bowel sounds Neuro: Awake, alert, oriented, conversing well, non focal. Cardiac cath wrist puncture site noted. Extremities: No cyanosis, clubbing or edema Discharge Data Allergies Allergy/AdvReac Type Severity Reaction Status Date / Time hydrocodone AdvReac Intermediate Dizziness Verified 02/15/22 20:51 Consultations 02/15/22 22:28 ED Decision to Admit Stat 02/16/22 08:00 Consult Cardiology Routine Procedures Performed Operation Date: 02/16/22 15:30 Actual Procedures s Cineradiography w/Routine Exam - Walter Love MD p Cath, Left with Cors and Vent - Walter Love MD Ordered Studies 02/16/22 10:23 US abdominal aortic aneurysm Routine 02/16/22 15:38 CL Cath Imgs for PACS use only Routine Hospital Course (1) Chest pain: (2) Abnormal stress test: 47-year-old male presented to ED yesterday with chest pain. Chest pain-serial troponin negative. EKG without ischemic changes. Seen by cardiology. Stress test was abnormal and underwent cardiac cath which showed normal coronaries. Per cardiology, abnormal stress findings due to uncontrolled hypertension and recommended increasing lisinopril hydrochlorothiazide dose and follow-up with PCP in a week with BMP. No cardiac follow-up necessary. Essential hypertension-increase dose of Prinzide. Recommended maintaining log of BP and follow up with PCP in a week for further management. GERD-continue PPI Hyperlipidemia-continue statin Morbid obesity -BMI 41. Weight loss recommended. Total Time Total Time Spent Total Time Spent (In Minutes): 35 Discharge Plan Discharge Items Patient Disposition: Home - Self-Care Reason For Visit: CHEST PAIN Discharge Diagnosis: Chest pain, hypertension Activity: Resume your previous activity Non-emergency contact: Primary Care Provider Call non-emergency contact if: you have any medication questions and your pain i s concerning for you Follow-up/Referrals: Aurelio Fried MD [Primary Care Provider] - (Date & Time 02/23/2022 11:00 AM Provider Aurelio Fried MD [facility] ) Diet: Regular Addtl Attending Provider Instructions: Continue checking your blood pressure regularly and maintain a log Increase your blood pressure medicine to two pills daily- might need further increase- follow with your family doctor for further management Recommend repeat blood work (BMP) in a week Follow with your family doctor Pending Studies at Discharge: No Stand-Alone Forms: [facility], Smoking Cessation Medications and DC Order Prescriptions: Continued multivitamin Tablet 1 tab PO QAM RF: 0 omeprazole 40 mg capsule,delayed release(DR/EC) 40 mg PO QAM RF: 0 Changed lisinopril-hydrochlorothiazide 10-12.5 mg Tablet 2 tab PO HS Qty: 0 RF: 0 Discharge Orders: Discharge Order (Routine); Ordered 02/16/22 Ordered By: Alan Hopkins Admission Data Admit Date/Time: 02/15/22 23:54 Attending Provider: Alan Hopkins Admit Provider: Librado Olivas Primary Care Provider: Aurelio Fried Other Providers: Librado Olivas ; Cortez Sanchez ; Abebe Schilling ; Walter Love ; Rene Faith ; Estuardo River ; Jhonny Alas ; Milana Naidu ; Gretchen Rivas ; Coco Bob ; Rio Hatfield
--- NOTE | 2022-02-16 18:55 | Cardiac Catheterization ---
Cardiac Cath Procedure Full Procedure Date February 16, 2022 Pre-Procedure Diagnosis Pre-Procedure Diagnosis: Positive Stress Test AUC Score AUC Score: 8 Post-Procedure Diagnosis Post-Procedure Diagnosis: Normal Coronary Arteries and Normal LV Systolic Function Procedure(s) Performed Procedure(s) Performed: Coronary Angiography and LV Angiography Photography Teacher Walter Love MD Graining Machine Operator(s) Angel Martines Estimated Blood Loss Estimated Blood Loss: <15cc Medication(s) Medication(s): Fentanyl (12.5 mcg IV), Heparin (5000 units IV), Lidocaine 1% (Local infiltration access site), Nicardipine (250 mcg intra-arterial after arterial sheath insertion) and Versed (1 mg IV) Summary of Findings Right dominant coronary anatomy Essentially normal coronary arteries with very large caliber dominant right coronary artery, diminutive type II left anterior descending Normal left ventricular systolic function, EF than 60-65% Normal left end-diastolic pressure Procedure: Left heart catheterization, coronary angiography Access right radial without complication Catheters: 6 Russian long glide sheath, 5 Russian [place] 5 Russian straight pigtail Hemodynamics Rest Ao:: 129/87/109 Final Ao: 139/83/105 LV: 148/2/12 Recommendations Recommendations: Medical Therapy and/or Counseling Specimens Specimens: None Radiation Exposure (mGy) 748 Contrast (mls) 100 Fluids (cc crystalloids) Fluids (cc crystalloids): 60 Anesthesia Start time: 1551 stop time: 1611 Procedural Complication(s) None Disposition PCU I attest to the content of the Intraoperative Record and any orders documented therein. Any exceptions are noted below. ACC Data: Contract Negotiation Manager Cardiac Status Clinical evaluation leading to the procedure 47-year-old with rest chest pain, hypertension with some atypical features who underwent stress echocardiography with equivocal findings and persistent symptoms. CAD Presenation: Positive Stress Test Anginal Classification: CCS III Heart Failure: No Cardiogenic Shock within 24 Hours: No Cardiac Arrest within 24 Hours: No Imaging Studies Past 6 Months: Yes Stress Studies Past 6 Months: Yes Standard Exercise Test: No Stress Echocardiogram: Yes - Indeterminant Stress Testing w/SPECT MPI: No Cardiac CTA: No Coronary Anatomy Dominant: Right LAD (% Stenosis): Normal (Type II vessel) D1 (% Stenosis): Normal D2 (% Stenosis): Normal D3 (% Stenosis): Normal Circumflex (% Stenosis): Normal OM1 (% Stenosis): Normal OM2 (% Stenosis): Normal OM3 (% Stenosis): Normal (Very large trifurcating vessel) RCA (% Stenosis): Normal (Very large caliber) R PDA (% Stenosis): Normal (Long, large reaching apex) R PL1 (% Stenosis): Normal R PL2 (% Stenosis): Normal Left Ventricular Angiography EF (%): 60-65 Diagnostic Physicians Name: Walter Love MD Status: Urgent Closure Device Percutaneous Entry Location: Radial Recommendations: Medical Therapy and/or Counseling
[2022-02-16] MEDS ORDERED: LISINOPRIL/HCTZ 10/12.5MG TAB PO SCH (21:00)
[2022-02-17] MEDS: NITROGLYCERIN 2% OINTMENT 30GM TUBE EXT SCH ×2 (05:17→09:42)
[2022-02-17] MEDS: ACETAMINOPHEN 325 MG TAB PO PRN (05:17)
[2022-02-17 05:55] LABS: Basophils # (auto) 0.02 K/uL (0-0.2); Basophils % (auto) 0.2 %; Eosinophils # (auto) 0.16 K/uL (0-0.5); Eosinophils % (auto) 1.9 %; Hematocrit (blood only) 42.7 % (42-52); Hemoglobin 14.7 g/dL (14.0-18.0); Immature Granulocytes # (auto) 0.02 K/uL (0.00-0.02); Immature Granulocytes % (auto) 0.2 %; Lymphocytes # (auto) 2.95 K/uL (1.2-3.4); Lymphocytes % (auto) 34.5 %; Mean Corpuscular Hemoglobin 29.4 pg (25-34); Mean Corpuscular Hgb Conc 34.4 g/dL (32-36); Mean Corpuscular Volume 85.4 fL (80-100); Mean Platelet Volume 9.3 fL (7.4-10.4); Monocytes # (auto) 0.85 K/uL (0.11-0.59); Monocytes % (auto) 9.9 %; Neutrophils # (auto) 4.56 K/uL (1.4-6.5); Neutrophils % (auto) 53.3 %; Platelet Count 264 K/uL (130-400); RDW Standard Deviation 43.2 fL (36.4-46.3); White Blood Count 8.56 K/uL (4.8-10.8)
[2022-02-17 06:26] LABS: BUN Creatinine Ratio 17.3 (10-20); Calcium 9.5 mg/dl (8.5-10.1); Creatinine Clr Calc Pharmacy 94.1 ml/min; Est GFR (African American) 98.6 ml/min; Est GFR (Non-African American) 85.1 ml/min; Potassium 3.9 mmol/L (3.5-5.1)
--- NOTE | 2022-02-17 06:49 | Electrocardiogram Report ---
Test Reason : Blood Pressure : / mmHG Vent. Rate : 085 BPM Atrial Rate : 085 BPM P-R Int : 140 ms QRS Dur : 092 ms QT Int : 350 ms P-R-T Axes : 042 034 024 degrees QTc Int : 416 ms Normal sinus rhythm Normal ECG When compared with ECG of 18-NOV-2020 21:04, No significant change was found Confirmed by Kendall Craig ([id number]) on 02/17/2022 6:49:18 AM Referred By: REFERRED SELF Confirmed By:Kendall Craig
--- NOTE | 2022-02-17 06:50 | Electrocardiogram Report ---
Test Reason : Blood Pressure : / mmHG Vent. Rate : 065 BPM Atrial Rate : 065 BPM P-R Int : 144 ms QRS Dur : 084 ms QT Int : 382 ms P-R-T Axes : 042 030 026 degrees QTc Int : 397 ms Normal sinus rhythm Normal ECG When compared with ECG of 15-FEB-2022 20:28, (unconfirmed) No significant change was found Confirmed by Kendall Craig ([id number]) on 02/17/2022 6:50:00 AM Referred By: REFERRED SELF Confirmed By:Kendall Craig
--- NOTE | 2022-02-17 06:55 | Electrocardiogram Report ---
Test Reason : Blood Pressure : / mmHG Vent. Rate : 060 BPM Atrial Rate : 060 BPM P-R Int : 146 ms QRS Dur : 098 ms QT Int : 426 ms P-R-T Axes : 043 033 023 degrees QTc Int : 426 ms Normal sinus rhythm Normal ECG When compared with ECG of 15-FEB-2022 21:47, (unconfirmed) No significant change was found Confirmed by Kendall Craig ([id number]) on 02/17/2022 6:54:44 AM Referred By: REFERRED SELF Confirmed By:Kendall Craig
[2022-02-17] MEDS ORDERED: ASPIRIN 81 MG ECTAB PO SCH (09:30)
[2022-02-17] MEDS ORDERED: ROSUVASTATIN CALCIUM 10 MG TAB PO SCH (09:30)
[2022-02-17] MEDS: PANTOprazole 40 MG TAB PO SCH (09:42)
[2022-02-17] MEDS: MULTIVITAMIN TAB PO SCH (09:42)
--- NOTE | 2022-02-17 09:58 | Cardiology Progress Note ---
Date of Service February 17, 2022 Assessment & Plan (1) Chest pain: (2) Hypertension: (3) Atherosclerosis of abdominal aorta: Plan: cardiac cath showed clear coronaries no cardiac source for chest discomfort: likely musculoskeletal BP improved f/u with pcp in 1 week for bmp and follow bp ok to d/c to home new finding of mild atherosclerotic disease of the abdominal aorta. pathophysiology reviewed with him started on asa and rosuvastatin, f/u with pcp for further management. Admission and Anticipated Discharge Date Admission Date: February 15, 2022 Subjective Pt seen and examined, chart reviewed. Still with occasional chest and jaw stiffness. Tolerated cath well. BP improved overnight. Tele reviewed: sinus rhythm without arrhythmias Review of Systems Review of Systems: All systems reviewed & are unremarkable except as noted in HPI & below Physical Exam Physical Exam: General: Awake, alert and oriented x 3. No acute distress. HEENT: Normocephalic, atraumatic. Pupils equal, round and reactive to light and accommodation. Extraocular muscles are intact. Anicteric sclera. Moist mucous membranes. Neck: No JVD. No bruit. Cardiovascular: Regular. Positive S-4. Normal S-1 and S-2. No S-3. 3/6 mid to late systolic ejection murmur, greatest at the right sternal border, second intercostal space with radiation to the bilateral carotids. No rubs. Pulmonary: Clear to auscultation bilaterally. No rales, rhonchi, or wheezing. Abdomen: Bowel sounds x 4, soft. No rebound, guarding or tenderness. No organomegaly. Extremities: No clubbing, cyanosis or edema. +2 pedal pulses bilaterally. Skin: Warm and dry. Results & Data ([facility] [place]) Vital Signs (Past 12 Hours) Vital Signs Temp Pulse Pulse Pulse Resp BP Pulse Ox 02/17/22 07:32 56 L 02/17/22 07:09 36.8 C 57 L 17 143/88 H 96 02/17/22 04:02 36.7 C 58 L 18 117/78 95 02/16/22 22:25 36.8 C 63 18 136/84 96 02/16/22 22:18 60 (1) Chest pain Chest pain type: precordial pain Qualified Code(s): R07.2 - Precordial pain (2) Hypertension Hypertension type: unspecified Qualified Code(s): I10 - Essential (primary) hypertension
--- NOTE | 2022-02-17 13:21 | Discharge Summary ---
Date of Service February 17, 2022 Admission HPI Per Admitting Provider This is a 47-year-old male with past medical history significant for hyperlipidemia, allergic rhinitis, hypertension, morbid obesity, lumbar disk disease, history of tension headaches, history of hypersomnolence disorder, presents with chest pain. The patient says he was playing with play box around 6:30 p.m., he noticed left chest tightness, about 4/10 in severity, and also some numbness in the left jaw and came to the ER. Nitroglycerin seemed to help, but seems somewhat coming back. He has also ongoing epigastric pain and is taking omeprazole, which is not helping. He was given some GI cocktail in the ER, but that did not help. The patient also says that he is having chest discomfort on and off since the last few days. Currently, resting comfortably and hemodynamically stable. Denies any headache. No dizziness, no blurred visions, no double visions, no earache, no runny nose, no sore throat, no cough, no difficulty swallowing. Appetite is okay. No shortness of breath, no nausea, no sweating, no abdominal pain. Normal bowel and bladder movements. Denies blood in stools or black stools, no hematuria, no swelling in the legs. Otherwise, he walks and climbs steps okay. Principal Diagnosis Chest pain-noncardiac Discharge Exam General: Lying comfortably in bed, not in distress, on room air HEENT: EOMI, JESUS, MMM Chest: Clear breath sounds bilaterally, no wheezes or crackles CVS: Regular rate and rhythm, normal heart sounds, no murmur Abdomen: Soft, non tender, not distended, normal bowel sounds Neuro: Awake, alert, oriented, conversing well, non focal. Extremities: No cyanosis, clubbing or edema Discharge Data Allergies Allergy/AdvReac Type Severity Reaction Status Date / Time hydrocodone AdvReac Intermediate Dizziness Verified 02/15/22 20:51 Consultations 02/15/22 22:28 ED Decision to Admit Stat 02/16/22 08:00 Consult Cardiology Routine Procedures Performed Operation Date: 02/16/22 15:30 Actual Procedures s Cineradiography w/Routine Exam - Walter Love MD p Cath, Left with Cors and Vent - Walter Love MD Ordered Studies 02/16/22 10:23 US abdominal aortic aneurysm Routine 02/16/22 15:38 Cath Imgs for PACS use only Routine Hospital Course (1) Chest pain: (2) Abnormal stress test: 47-year-old male presented to ED yesterday with chest pain. Noncardiac chest pain- serial troponin negative. EKG without ischemic changes. Seen by cardiology. Stress test was abnormal and underwent cardiac cath which showed normal coronaries. Per cardiology, chest pain likely musculoskeletal and abnormal stress findings likely due to uncontrolled hypertension and recommended increasing lisinopril hydrochlorothiazide dose and follow-up with PCP in a week with BMP. No cardiac follow-up necessary. Atherosclerosis of abdominal aorta-mild atherosclerotic calcification and irregularity throughout abdominal aorta with no evidence of abdominal degeneration. Started on aspirin and Crestor per cardiology for the same. Essential hypertension-increase dose of Prinzide. Recommended maintaining log of BP and follow up with PCP in a week for further management. GERD-continue PPI Hyperlipidemia-continue statin Morbid obesity -BMI 41. Weight loss recommended. Total Time Total Time Spent Total Time Spent (In Minutes): 20 Discharge Plan Discharge Items Patient Disposition: Home - Self-Care Reason For Visit: CHEST PAIN Discharge Diagnosis: Chest pain, hypertension Activity: Resume your previous activity Non-emergency contact: Primary Care Provider Call non-emergency contact if: you have any medication questions and your pain is concerning for you Follow-up/Referrals: Aurelio Fried MD [Primary Care Provider] - (Date & Time 02/23/2022 11:00 AM Provider Aurelio Fried MD [facility] ) Diet: Regular Addtl Attending Provider Instructions: Continue checking your blood pressure regularly and maintain a log Increase your blood pressure medicine to two pills daily- might need further increase- follow with your family doctor for further management Recommend repeat blood work (BMP) in a week Follow with your family doctor Pending Studies at Discharge: No Stand-Alone Forms: [employer] [place], Smoking Cessation Medications and DC Order Prescriptions: New aspirin 81 mg Tablet,Delayed Release (Dr/Ec) 81 mg PO QAM Qty: 30 RF: 0 rosuvastatin [Crestor] 10 mg Tablet 10 mg PO QAM Qty: 30 RF: 0 Continued multivitamin Tablet 1 tab PO QAM RF: 0 omeprazole 40 mg capsule,delayed release(DR/EC) 40 mg PO QAM RF: 0 Changed lisinopril-hydrochlorothiazide 10-12.5 mg Tablet 2 tab PO HS Qty: 0 RF: 0 Discharge Orders: Discharge Order (Routine); Ordered 02/17/22 Ordered By: Alan Hopkins Admission Data Admit Date/Time: 02/15/22 23:54 Attending Provider: Alan Hopkins Admit Provider: Librado Olivas Primary Care Provider: Aurelio Fried Other Providers: Librado Olivas ; Cortez Sanchez ; Abebe Schilling ; Walter Love ; Rene Faith ; Estuardo River ; Jhonny Alas ; Milana Naidu ; Gretchen Rivas ; Coco Bob ; Rio Hatfield Other Interventions: Discharge Summary Assessment (RN) Last Done: 02/17/22 10:23
== END 2022-02-17 11:45 | disposition home or self-care (01) ==
LOC: ED 20:18 → 2N 20:18 → 2S 02-16 16:36